=== PATIENT | female | born 1980 | race American Indian/Alaskan Native ===

== ENCOUNTER 2017-11-16 17:45 | Emergency (ER) | payer OTHER ==
[2017-11-16 18:16] VITALS: BP 152/84; PULSE 84; RESP 18; TEMP 98.6; O2SAT 100
--- NOTE | 2017-11-16 18:28 | C.PDOC ---
History Of Present Illness 37 y/o female who was sitting in a restaurant today when she had sudden onset room spinning. She went to the restroom and complains that she became very sweaty. No chest pain, shortness of breath, syncope, or abdominal pain. She has had similar symptoms in the past, going back on year, and is not aware of and findings on previous workups. She is currently asymptomatic. Denies history of DM, HTN, or other problems. LMP: as expected, and on time. Chief Complaint (Nursing): Dizziness/Lightheaded History Per: Patient History/Exam Limitations: no limitations Onset/Duration Of Symptoms: Sudden Onset Current Symptoms Are (Timing): Gone Seizure Or Post-ictal Symptoms: None Fall Associated With With Symptoms: No Severity: Moderate Additional History Per: Patient Past Medical History Vital Signs: Last Vital Signs Temp 98.6 F 11/16/17 18:11 Pulse 84 11/16/17 18:11 Resp 18 11/16/17 18:11 BP 152/84 H 11/16/17 18:11 Pulse Ox 100 11/16/17 18:43 - Medical History PMH: No Chronic Diseases Surgical History: No Surg Hx Family History: States: Unknown Family Hx - Social History Hx Alcohol Use: No Hx Substance Use: No - Immunization History Hx Tetanus Toxoid Vaccination: No Hx Influenza Vaccination: No Hx Pneumococcal Vaccination: No Review Of Systems Except As Marked, All Systems Reviewed And Found Negative. Neurological: Positive for: Dizziness Physical Exam - Physical Exam Appears: Well, No Acute Distress Skin: Normal Color, Warm, Dry Eye(s): bilateral: Normal Inspection, PERRL, EOMI Ear(s): Bilateral: TM Obscured By Wax (impacted bilaterally ) Nose: Normal Throat: Normal Neck: Normal Cardiovascular: Rhythm Regular Respiratory: Normal Breath Sounds Gastrointestinal/Abdominal: Normal Exam Back: Normal Inspection Extremity: Normal ROM Neurological/Psych: Oriented x3, Normal Speech, Normal Cognition, Normal Cranial Nerves, Normal Motor (5/5 in upper and lower), Normal Sensation, Other ( [id number] normal, [id number] normal, Dicks-Hallpike is positive significantly to the left.) ED Course And Treatment ECG: Interpreted By Me, Viewed By Me Interpretation Of ECG: NSR 82, intervals are within normal limits. No acute ST/ T wave charges, poor R-wave progression in the anterior-septal leads. No old EKG for comparison. No acute ischemic changes. O2 Sat by Pulse Oximetry: 100 (RA) Pulse Ox Interpretation: Normal Medical Decision Making Medical Decision Making: Impression: Benign positional vertigo, bilateral cerumen impaction Patient is medically stable and does not require further workup at this time. A prescription for Antivert will be given today, and it was recommended that the patient purchase an OTC ear wax softener. She should follow up with her PMD. Scribe Attestation: Documented by Monique Higgins acting as a scribe for Karma Hurt MD MD Scribe Attestation: All medical record entries made by the Scribe were at my direction and personally dictated by me. I have reviewed the chart and agree that the record accurately reflects my personal performance of the history, physical exam, medical decision making, and the department course for this patient. I have also personally directed, reviewed, and agree with the discharge instructions and disposition. Disposition Doctor Will See Patient In The: Office Counseled Patient/Family Regarding: Diagnosis, Need For Followup - Disposition Referrals: [facility] [Outside] Disposition: HOME/ ROUTINE Disposition Time: 18:41 Condition: STABLE Prescriptions: Meclizine [Meclizine*] 25 mg PO Q6 #30 tab Instructions: Vertigo (a Type of Dizziness), Ear Wax Impaction, Vestibular Exercises Forms: [facility] (Slovak) Print Language: AMHARIC - Clinical Impression Clinical Impression: Vertigo
--- NOTE | 2017-11-17 12:02 | CARD ---
APPROVED REPORT EKG Measurement Heart [id number] MI [id number] <Conclusion> Normal sinus rhythm Cannot rule out Anterior infarct, age undetermined Abnormal ECG
== END 2017-11-16 18:54 | disposition home or self-care (01) ==
LOC: C.ER 17:45
DX: R42 Dizziness and giddiness (principal)